=== PATIENT | male | born 1955 | race African-American/Black ===

== ENCOUNTER 2022-03-20 14:57 | Emergency (ER) | payer OTHER ==
[2022-03-20 15:32] LABS: #Eosinphils 0.1 10x3/uL (0.0-0.5); #Monocytes 0.7 10x3/uL (0.0-1.1); #Neutrophils 3.9 10x3/uL (1.5-8.4); %Basophils 0.3 % (0.0-2.0); %Eosinophils 1.9 % (0.0-6.0); %Lymphocytes 19.3 % (18.0-47.0); %Monocytes 12.6 % (0.0-10.0); %Neutrophils 65.7 % (40.0-75.0); Mean Corpuscular HGB CONC 31.4 g/dL (32.0-36.0); Mean Corpuscular Hemoglobin 28.3 pg (27.0-33.0); Mean Corpuscular Volume 90.2 fl (81.2-95.1); Mean Platelet Volume 11.7 fl (7.4-10.4); Platelet Count 223 10x3/uL (150-450); RBC Distribution Width 14.6 % (11.5-14.5); White Blood Cell (WBC) Count 5.9 10x3/uL (3.5-10.5)
[2022-03-20 15:45] LABS: ALT (SGPT) 24 U/L (8-55); AST (SGOT) 26 U/L (5-34); Albumin 4.4 g/dL (3.4-4.8); Alkaline Phosphatase 64 U/L (40-110); Anion Gap 13 mmol/L (10-20); BUN (Urea Nitrogen) 19 mg/dL (8.4-25.7); Bilirubin, Total 0.9 mg/dL (0.2-1.2); Calc. Creatinine Clearance 0 mL/min (70-130); Carbon Dioxide 24 mmol/L (23-31); Chloride 107 mmol/L (98-107); Estimated GFR 49; Globulin 4.2 g/dL (2.4-3.5); Glucose 75 mg/dL (80-115); Potassium 3.9 mmol/L (3.5-5.1); Protein, Total 8.6 g/dL (5.8-8.1); Sodium 140 mmol/L (136-145)
[2022-03-20 16:04] LABS: CKMB 5.8 ng/mL (0-6.6)
[2022-03-20] MEDS ORDERED: Furosemide 40 MG/4 ML VIAL ONE (19:20)
[2022-03-20 20:16] LABS: SARS-CoV-2 NAA Rapid Test Not Detected (NotDetected)
[2022-03-20] MEDS ORDERED: Nitroglycerin 2% Ointment 1 INCH/1 GM Packet ONE (22:52)
[2022-03-20] MEDS ORDERED: Enoxaparin Sodium 100 MG/ML SYRINGE ONE (22:53)
[2022-03-21 06:16] LABS: CKMB 3.8 ng/mL (0-6.6)
[2022-03-21] MEDS ORDERED: Lisinopril 10 MG TAB ONE (07:53)
[2022-03-21] MEDS ORDERED: Amlodipine 5 MG TAB ONE ×2 (07:54→11:54)
[2022-03-21] MEDS ORDERED: hydrALAZINE 25 MG TAB ONE (07:54)
[2022-03-21] MEDS ORDERED: Atorvastatin Calcium 40 MG TAB ONE (07:55)
[2022-03-21] MEDS ORDERED: Carvedilol 3.125 MG TAB ONE (07:55)
== END 2022-03-21 12:00 ==
LOC: CSHERS 14:57
DX: R60.0 Localized edema (principal); I11.0 Hypertensive heart disease with heart failure; I50.9 Heart failure, unspecified; R77.8 Other specified abnormalities of plasma proteins; E11.9 Type 2 diabetes mellitus without complications; Z86.73 Personal history of transient ischemic attack (TIA), and cerebral infarction without residual deficits; Z20.822 Contact with and (suspected) exposure to COVID-19
CPT/HCPCS: 36415; 71045; 80053; 82553; 83605; 83880; 84484; 85025; 93005; 96372; 96374; J1650; J1940; U0002